=== PATIENT | female | born 1935 | race Caucasian/White ===

== ENCOUNTER → 2016-10-26 | Outpatient (CLI) | payer MEDICARE | END | disposition home or self-care (01) | LOC: PCVCIMAG 09:41 | PROVIDERS: ATTEND Internal Medicine Cardiovascular Disease | DX: I25.10 Atherosclerotic heart disease of native coronary artery without angina pectoris (principal); I10 Essential (primary) hypertension; I48.0 Paroxysmal atrial fibrillation; E78.00 Pure hypercholesterolemia, unspecified; Z95.1 Presence of aortocoronary bypass graft | CPT/HCPCS: 80061; 93005; 93306; G0463 ==

== ENCOUNTER → 2017-10-23 | Outpatient (CLI) | payer MEDICARE | END | disposition home or self-care (01) | LOC: PCVCCLINIC 10:11 | DX: I25.10 Atherosclerotic heart disease of native coronary artery without angina pectoris (principal); I10 Essential (primary) hypertension; I48.0 Paroxysmal atrial fibrillation; E78.00 Pure hypercholesterolemia, unspecified; R94.31 Abnormal electrocardiogram [ECG] [EKG]; Z79.82 Long term (current) use of aspirin; Z79.899 Other long term (current) drug therapy | CPT/HCPCS: 93005; G0463 ==

== ENCOUNTER → 2018-04-30 | Outpatient (CLI) | payer MEDICARE ==
[~2018-04-30] MED LIST: AMINOPHYLLINE 250 MG/10 ML VIAL. ONE; REGADENOSON 0.4 MG/5 ML DISP.SYRIN. IV ONE
--- NOTE | 2018-04-30 11:24 | PCVCIMAG ---
APPROVED REPORT Imaging Protocol: Rest Tc-99m/Stress Tc-99m 1 day Study performed: 04/30/2018 08:11:42 Indication: CAD, Palpitations, P-Atrial Fibrillation Patient Location: Out-Patient Stress Nurse: Loree Salmeron RN, Yennifer Willis RN [place] Tech:Charisse FIORELLA TomasMT Ht: 5 ft 2 in Wt: 139 lbs BSA: 1.64 m2 HR: 75 bpm BP: 187/84 mmHg BMI: 25.42 Medical History Medical History: HTN, Hyperlipidemia, CAD, Atrial Fibrillation Medications: ASA, Chlorthalidone, Metoprolol, Omeprazole, Lisinopril Allergies: Many, none related to the test Cardiac Risk Factors: Age Previous Cardiac Procedures: CABG, PCI Pretest Chest Pain Characteristics: No chest pain Exercise History: Sedentary Physical Disabilities: Knees Meds Held (24 hrs): Metoprolol Resting Data Rest SPECT myocardial perfusion imaging was performed in supine position 45 minutes following the intravenous injection of 10.3 mCi of Tc-99m Sestamibi. Time of rest injection: 809 Date: 04/30/2018 Pharmacologic Stress Pharmacologic stress test was performed by injecting Regadenoson 0.4 mg IV push over 10-15 seconds immediately followed by the intravenous injection of 31.9 mCi of Tc-99m Sestamibi. Time of stress injection: 914 Date: 04/30/2018 Administration Route: IV Administration Site: Right AC Gated Stress SPECT was performed 45 minutes after stress injection. The images were gated to evaluate regional wall motion and calculate left ventricular ejection fraction. Stress Test Details Stress Test: Pharmacologic stress testing performed using 0.4 mg of regadenoson per 5 mL given IV over 10 seconds. Reason for pharmacologic stress test: physical limitation, knees. HRMax Heart Rate (APMHR): 139 bpm Resting HR: 75 bpmTarget HR (85% APMHR): 118 bpm Max HR Achieved: 109 bpm % of APMHR: 78 Recovery HR: 93 bpm BP Resting BP: 187/84 mmHg Recovery BP: 147/65 mmHg ECG Resting ECG: Sinus Rhythm, nonspecific ST-T abnormalities Stress ECG: Sinus Tachycardia, mild inferior/anterior ST changes ST Change: Non-ischemic Arrhythmia: None Recovery ECG: Sinus Rhythm, nonspecific ST-T abnormalities Clinical Reason for Termination: Completed protocol Stress Symptoms: Dyspnea, Nausea Exercise duration: 0 min 55 sec Symptoms resolved with caffeine. Nurse Comments Post recovery, patient complained of severe large muscle aches. Aminiphylline 100 mg given IV, resolved. Study Quality Study: Good Artifact: Mild Diaphragmatic artifact Study Data Post stress, the left ventricular ejection was 87%.. SSS: 0 SRS: 2 SDS: 0 TID = 1.00. Perfusion There is a small area of mildly reduced uptake in the apical segment of the inferior wall which is seen on the stress images as well as the resting images. This area thickens and moves normally and is most consistent with attenuation artifact. Wall Motion Normal left ventricular wall motion. Nuclear Conclusion ECG Findings: negative for ischemia Clinical Findings: non-diagnostic Nuclear Findings: negative for ischemia Exercise Capacity: not assessed Left Ventricular Function: normal Risk Study: low This study is of low probability for inducible ischemia or prior infarct. Normal global and segmental LV systolic function. Artifact: Mild Diaphragmatic artifact
== END | disposition home or self-care (01) ==
LOC: PCVCIMAG 07:30
PROVIDERS: ATTEND Internal Medicine Cardiovascular Disease
DX: I25.10 Atherosclerotic heart disease of native coronary artery without angina pectoris (principal); I48.91 Unspecified atrial fibrillation; R06.09 Other forms of dyspnea; R00.2 Palpitations; I10 Essential (primary) hypertension; E78.5 Hyperlipidemia, unspecified; K21.9 Gastro-esophageal reflux disease without esophagitis; Z79.82 Long term (current) use of aspirin
CPT/HCPCS: 78452; 93005; 93017; A9500; G0463; J2785; J0280

== ENCOUNTER → 2018-11-05 | Outpatient (CLI) | payer MEDICARE | END | disposition home or self-care (01) | LOC: PCVCCLINIC 10:30 | PROVIDERS: ATTEND Internal Medicine Cardiovascular Disease | DX: I25.10 Atherosclerotic heart disease of native coronary artery without angina pectoris (principal); R00.2 Palpitations; I10 Essential (primary) hypertension; K21.9 Gastro-esophageal reflux disease without esophagitis; M81.0 Age-related osteoporosis without current pathological fracture; Z79.82 Long term (current) use of aspirin | CPT/HCPCS: 93005; G0463 ==

== ENCOUNTER → 2018-12-24 | Outpatient (CLI) | payer MEDICARE | END | disposition home or self-care (01) | LOC: PCVCCLINIC 11:00 | PROVIDERS: ATTEND Internal Medicine Cardiovascular Disease | DX: I25.10 Atherosclerotic heart disease of native coronary artery without angina pectoris (principal); I10 Essential (primary) hypertension; E78.00 Pure hypercholesterolemia, unspecified; I47.1 Supraventricular tachycardia; Z88.0 Allergy status to penicillin; Z88.6 Allergy status to analgesic agent; Z88.2 Allergy status to sulfonamides; Z88.8 Allergy status to other drugs, medicaments and biological substances; Z91.048 Other nonmedicinal substance allergy status | CPT/HCPCS: 93005; G0463 ==